=== PATIENT | female | born 1965 | race African-American/Black ===

== ENCOUNTER 2021-02-11 06:31 | Day surgery (SDC) | payer OTHER ==
[2021-02-08 16:14] VITALS: BMI 37.7
[2021-02-11] MEDS ORDERED: LIDOCAINE HCL/PF 2% SDV 5ML VIAL ONE (07:58)
[2021-02-11] MEDS ORDERED: PROPOFOL 20 ML ONE ×4 (07:58)
[2021-02-11 10:01] VITALS: BP 110/62; PULSE 56; TEMP 97.8
== END 2021-02-11 10:01 | disposition home or self-care (01) ==
LOC: FASU-ENDO 06:31
PROVIDERS: ATTEND Internal Medicine Gastroenterology
PROC: 0DBK8ZX Excision of Ascending Colon, Via Natural or Artificial Opening Endoscopic, Diagnostic (ICD-10-PCS; principal; 2021-02-11 08:32)
DX: Z12.11 Encounter for screening for malignant neoplasm of colon (principal); D12.2 Benign neoplasm of ascending colon; K57.30 Diverticulosis of large intestine without perforation or abscess without bleeding
CPT/HCPCS: 88305-TC